=== PATIENT | male | born 1970 | race Caucasian/White ===

== ENCOUNTER 2020-04-29 16:31 | Emergency (ER) | payer OTHER ==
[~2020-04-29] VITALS: Ht 182.9 cm; Wt 95.3 kg
[~2020-04-29 16:31] MED LIST: LISINOPRIL-HCT1 EAC1
[2020-04-29] MEDS ORDERED: PRINIVIL10 MG PO (16:42)
[2020-04-29 17:54] VITALS: BP 125/70
== END 2020-04-29 17:54 | disposition home or self-care (01) ==
LOC: M.ERS 16:31
DX: S61.412A Laceration without foreign body of left hand, initial encounter (principal); I10 Essential (primary) hypertension; Z79.899 Other long term (current) drug therapy; W45.8XXA Other foreign body or object entering through skin, initial encounter; Y93.89 Activity, other specified; Y92.89 Other specified places as the place of occurrence of the external cause; Y99.9 Unspecified external cause status

== ENCOUNTER 2020-09-20 20:29 | Emergency (ER) | payer OTHER ==
[~2020-09-20] VITALS: Ht 182.9 cm; Wt 93.4 kg
[~2020-09-20 20:29] MED LIST changes: +PRINIVIL10 MG PO
[2020-09-20] MEDS ORDERED: AUGMENTIN 875-1 EACH PO (21:20)
[2020-09-20 21:55] VITALS: BP 131/87
== END 2020-09-20 21:56 | disposition home or self-care (01) ==
LOC: M.ERS 20:29
DX: S61.200A Unspecified open wound of right index finger without damage to nail, initial encounter (principal); I10 Essential (primary) hypertension; Z79.899 Other long term (current) drug therapy; W27.0XXA Contact with workbench tool, initial encounter; Y93.9 Activity, unspecified; Y92.89 Other specified places as the place of occurrence of the external cause; Y99.9 Unspecified external cause status